=== PATIENT | female | born 1990 | race Caucasian/White ===

== ENCOUNTER 2019-02-02 13:44 | Inpatient (IN) | payer OTHER ==
[2019-02-02] MEDS ORDERED: LACTATED RINGER'S 1,000 ML IV (14:37)
[2019-02-02] MEDS ORDERED: OXYTOCIN 30 UNITS/LR 500 ML IV (15:00)
[2019-02-02] MEDS ORDERED: METHYLERGONOVINE 0.2 MG INJ IM (15:00)
[2019-02-02] MEDS ORDERED: BUTORPHANOL 2 MG INJ IV ×2 (15:00)
[2019-02-02] MEDS ORDERED: MISOPROSTOL 200 MCG TAB PR (15:00)
[2019-02-02] MEDS ORDERED: IBUPROFEN 600 MG TAB PO (15:00)
[2019-02-02] MEDS ORDERED: LIDOCAINE 1% (MPF) 30 ML INJ INJ (15:00)
[2019-02-02] MEDS ORDERED: CARBOPROST 250 MCG INJ IM (15:00)
[2019-02-02 15:12] LABS: ADD MAN DIFF? NO
[2019-02-02 15:15] LABS: WHITE BLOOD COUNT 9.9 10^3/ul (4.8-10.8)
[2019-02-02 15:15] LABS: BASOPHILS % 0.2 % (0.0-2.0); EOSINOPHILS % 0.2 % (0.0-7.0); HEMATOCRIT 33.7 % (37.0-47.0); HEMOGLOBIN 11.5 g/dl (12.0-16.0); LYMPHOCYTES # 1.6 10^3/ul (0.8-2.9); LYMPHOCYTES % 15.9 % (15.0-51.0); MEAN CORPUSCULAR HEMOGLOBIN 33.1 pg (29.0-33.0); MEAN CORPUSCULAR HGB CONC 34.1 g/dl (32.0-37.0); MEAN CORPUSCULAR VOLUME 97.1 fl (82.0-101.0); MEAN PLATELET VOLUME 12.7 fl (7.4-10.4); MONOCYTE # 0.6 10^3/ul (0.3-0.9); MONOCYTES % 6.1 % (0.0-11.0); NEUTROPHIL # 7.7 10^3/ul (1.6-7.5); NEUTROPHILS % 77.1 % (39.0-77.0); PLATELET COUNT 213 10^3/UL (140-415); RED BLOOD COUNT 3.47 10^6/ul (4.20-5.40); RED CELL DISTRIBUTION WIDTH 13.2 % (11.5-14.5)
[2019-02-02] MEDS: LACTATED RINGER'S 1,000 ML IV ×3 (15:20→23:20)
[2019-02-02 15:34] LABS: ALANINE AMINOTRANSFERASE 71 IU/L (13-69); ALBUMIN 3.5 g/dl (3.3-4.9); ALBUMIN/GLOBULIN RATIO 0.89; ALKALINE PHOSPHATASE 323 IU/L (42-121); ANION GAP 8 (5-13); ASPARTATE AMINO TRANSFERASE 65 IU/L (15-46); BILIRUBIN,INDIRECT 0.5 mg/dl (0-1.1); BILIRUBIN,TOTAL 0.5 mg/dl (0.2-1.3); BLOOD UREA NITROGEN 11 mg/dl (7-20); CALCIUM 9.5 mg/dl (8.4-10.2); CARBON DIOXIDE 20 mmol/L (21-31); CHLORIDE 108 mmol/L (97-110); CREATININE 0.61 mg/dl (0.44-1.00); Estimated GFR > 60 mL/min (>60); GLUCOSE 93 mg/dl (70-220); INR 0.85; POTASSIUM 3.7 mmol/L (3.5-5.1); PROTIME 11.7 Sec (11.9-14.9); PT RATIO 0.9; SODIUM 136 mmol/L (135-144); TOTAL PROTEIN 7.4 g/dl (6.1-8.1)
[2019-02-02 15:35] LABS: PARTIAL THROMBOPLASTIN TIME 26.5 Sec (23.0-35.0)
[2019-02-02] MEDS: MISOPROSTOL 50 MCG CAPSULE PO ×2 (16:53→21:34)
[2019-02-03] MEDS ORDERED: TERBUTALINE 1 ML (00:10)
[2019-02-03] MEDS: TERBUTALINE 1 MG/ML INJ SC (00:12)
[2019-02-03] MEDS: MISOPROSTOL 50 MCG CAPSULE PO ×2 (05:00→05:59)
[2019-02-03 06:00] LABS: CBV Base Excess -4.7 mmol/L; CBV COHb 1.4 %; CBV Oxygen Sat 78.8 mmHG; CBV Total Hemglobin 15.3 g/dl; Cord Blood Venous pO2 36.9 mmHG (15.0-45.0); MODE ROOM AIR; MetHgb Cord Venous 0.9 %; Sample Type CBV; Site CORD
[2019-02-03 06:02] LABS: AADO2 Cord Arterial 70.2 mmHg; Arterial Cord Blood pCO2 49.9 mmHG (25-50); CBA COHb 0.6 %; CBA Oxygen Sat 37.7 mmHG; CBA Total Hemglobin 14.5 g/dl; Cord Blood Arterial pO2 19.8 mmHG (15.0-45.0); Fraction OxyHgb Cord Arterial 36.7 %; MODE ROOM AIR; Sample Type CBA; Site CORD
[2019-02-03] MEDS: OXYTOCIN 30 UNITS/LR 500 ML IV ×3 (06:03→10:27)
[2019-02-03] MEDS ORDERED: ZOLPIDEM 5 MG TAB PO (07:00)
[2019-02-03] MEDS ORDERED: HYDROCODONE/APAP (5/325) TAB PO (07:00)
[2019-02-03] MEDS ORDERED: DIPHENHYDRAMINE 25 MG CAP PO (07:00)
[2019-02-03] MEDS ORDERED: MISOPROSTOL 200 MCG TAB PR (07:00)
[2019-02-03] MEDS ORDERED: ONDANSETRON 4 MG INJ IV (07:00)
[2019-02-03] MEDS ORDERED: OXYTOCIN 30 UNITS/LR 500 ML IV (07:00)
[2019-02-03] MEDS ORDERED: NACL 0.9% 3 ML SYG IV (07:00)
[2019-02-03] MEDS ORDERED: CARBOPROST 250 MCG INJ IM (07:00)
[2019-02-03] MEDS: IBUPROFEN 600 MG TAB PO ×3 (08:15→18:12)
[2019-02-03] MEDS: LANOLIN HPA 1 PKT TOP (10:30)
[2019-02-03] MEDS: WITCH HAZEL/GLYCERIN PAD PR (10:30)
[2019-02-03] MEDS: SENNA/DOCUSATE NA (8.6MG/50MG) TAB PO ×2 (10:30→21:18)
[2019-02-03 22:03] LABS: RAPID PLASMA REAGIN NONREACTIVE (NR)
[2019-02-04] MEDS: IBUPROFEN 600 MG TAB PO ×5 (00:38→23:46)
[2019-02-04 08:50] LABS: ADD MAN DIFF? NO
[2019-02-04 08:53] LABS: WHITE BLOOD COUNT 10.1 10^3/ul (4.8-10.8)
[2019-02-04 08:53] LABS: BASOPHILS % 0.2 % (0.0-2.0); EOSINOPHILS # 0.1 10^3/ul (0.0-0.5); EOSINOPHILS % 0.6 % (0.0-7.0); HEMATOCRIT 33.6 % (37.0-47.0); HEMOGLOBIN 11.3 g/dl (12.0-16.0); LYMPHOCYTES # 1.9 10^3/ul (0.8-2.9); LYMPHOCYTES % 19.1 % (15.0-51.0); MEAN CORPUSCULAR HEMOGLOBIN 33.4 pg (29.0-33.0); MEAN CORPUSCULAR HGB CONC 33.6 g/dl (32.0-37.0); MEAN CORPUSCULAR VOLUME 99.4 fl (82.0-101.0); MEAN PLATELET VOLUME 12.6 fl (7.4-10.4); MONOCYTE # 0.4 10^3/ul (0.3-0.9); MONOCYTES % 3.8 % (0.0-11.0); NEUTROPHIL # 7.7 10^3/ul (1.6-7.5); NEUTROPHILS % 75.7 % (39.0-77.0); PLATELET COUNT 222 10^3/UL (140-415); RED BLOOD COUNT 3.38 10^6/ul (4.20-5.40); RED CELL DISTRIBUTION WIDTH 13.1 % (11.5-14.5)
[2019-02-04] MEDS: SENNA/DOCUSATE NA (8.6MG/50MG) TAB PO ×2 (10:14→20:58)
[2019-02-04] MEDS: WITCH HAZEL/GLYCERIN PAD PR (21:00)
[2019-02-05] MEDS: IBUPROFEN 600 MG TAB PO ×2 (05:47→11:45)
[2019-02-05] MEDS: VARICELLA VACCINE LIVE/PF 1,350 UNIT/0.5 ML ML SC* (09:00)
[2019-02-05] MEDS: MEASLES,MUMPS,RUBELLA VACCINE INJ SC* (09:00)
[2019-02-05] MEDS: SENNA/DOCUSATE NA (8.6MG/50MG) TAB PO (09:24)
[2019-02-05] MEDS: DIPHTH/TET/ACEL PERTUSS (ADULT) 0.5 ML VIAL IM* (10:37)
== END 2019-02-05 14:28 | disposition home or self-care (01) | DRG 805 ==
LOC: L-D 13:44 → PP1 02-03 08:47 → L-D 15:15
PROC: 10E0XZZ Delivery of Products of Conception, External Approach (ICD-10-PCS; principal; 2019-02-03)
PROC: 0HQ9XZZ Repair Perineum Skin, External Approach (ICD-10-PCS; 2019-02-03)
PROC: 0UQMXZZ Repair Vulva, External Approach (ICD-10-PCS; 2019-02-03)
DX: O26.62 Liver and biliary tract disorders in childbirth (principal); K83.1 Obstruction of bile duct; Z37.0 Single live birth; O70.0 First degree perineal laceration during delivery; O71.82 Other specified trauma to perineum and vulva; O69.81X0 Labor and delivery complicated by cord around neck, without compression, not applicable or unspecified; Z3A.37 37 weeks gestation of pregnancy; Z23 Encounter for immunization
CPT/HCPCS: 36415; 36600; 76815; 80053; 82803; 85025; 85610; 85730; 86592; 86850; 86900; 86901; 88307; 90716; 99464